=== PATIENT | female | born 1935 | race Caucasian/White ===

== ENCOUNTER 2018-01-14 10:57 | Emergency (ER) | payer MEDICARE, BC, SELFPAY ==
[2017-07-24 11:23] VITALS: BMI 31.7
[2018-01-14 11:08] VITALS: BP 167/72; PULSE 67; RESP 16; TEMP 37.2; O2SAT 97; BMI 31.8
[2018-01-14] MEDS: CYCLOBENZAPRINE 10 MG TABLET PO (11:46)
[2018-01-14] MEDS: IBUPROFEN 400 MG TABLET PO (11:46)
[2018-01-14 12:00] LABS: Add Manual Diff / Slide Review NO; Basophils Percent Auto 0.2 % (0-2); Eosinophils Percent Auto 2.3 % (2-4); Hematocrit 42.8 % (36-46); Hemoglobin 14.2 g/dL (12.0-16.0); Lymphocytes Percent Auto 16.2 % (25-40); Mean Corpuscular HGB Conc 33.2 % (30-36); Mean Corpuscular Hemoglobin 28.8 PG (26-34); Mean Corpuscular Volume 86.8 fL (80-100); Monocytes Percent Auto 11.9 % (3-14); Neutrophils Absolute Auto 4600 /uL (3000-5900); Neutrophils Percent Auto 69.4 % (50-75); Platelet Count 270 X10^3/uL (150-400); Red Blood Cell Count 4.94 X10^6/uL (4.0-5.2); White Blood Cell Count 6.6 X10^3/uL (4.5-11.0)
--- NOTE | 2018-01-14 12:06 | DI.RAD.S_ITS ---
PROCEDURE: XR HIP W PEL IF DONE RT 2V INDICATIONS: severe R hip pain, no significant injury TECHNIQUE: AP pelvis with lateral view(s) of the right hip(s). COMPARISON: [facility], , XR HIP W PEL IF DONE RT 2V, 07/24/2017, 10:26. FINDINGS: Bones: Patient is status post right hip arthroplasty. Alignment of right hip is unchanged from prior study. No gross hardware loosening or failure. 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 Pelvic ring appears intact. No suspicious bony lesions. Soft tissues: The visualized bowel gas pattern is normal. No suspicious soft tissue calcifications. IMPRESSION: No gross acute pelvic or right hip fracture. No gross hardware complication. Dictated by: Blaise Torres M.D. on 01/14/2018 at 13:09 Approved by: Blaise Torres M.D. on 01/14/2018 at 13:10
[2018-01-14 12:08] VITALS: BP 143/57; PULSE 70; RESP 16; O2SAT 100
[2018-01-14 12:12] LABS: BUN Creatinine Ratio 25.7 (6-22); Blood Urea Nitrogen 18 mg/dL (7-17); Calcium 9.2 mg/dL (8.4-10.2); Carbon Dioxide 32 mmol/L (22-32); Chloride 101 mmol/L (98-107); Estimated Glomerular Filt Rate > 60.0 mL/min (>60); Glucose 110 mg/dL (80-110); HEMOLYSIS < 15 (0-50); Sodium 141 mmol/L (137-145)
--- NOTE | 2018-01-14 12:58 | ED.FALL ---
HPI - Fall General Chief Complaint: Fall Stated Complaint: Right Hip and Leg pain Time Seen by Provider: 01/14/18 11:05 Source: patient and EMS Mode of arrival: EMS Limitations: no limitations History of Present Illness HPI Narrative: 82-year-old nonsmoking female presents by EMS for evaluation of right leg pain. She had called EMS to evaluate for spasming in her right anterior thigh and they were preparing to leave when the patient fell in front of them because of her pain. She denies any fall contributing to her injury. She denies any recent nausea, vomiting or diarrhea. She denies any new medications. She denies any fever or chills. Patient states that she had a right hip surgery earlier in the year and started increasing her activity in the past few days. She did a special type of yoga and then exerted herself even more over the past 2 days. Her pain is worse with motion and improves with rest. MD complaint: fall Onset (ago): minute(s) Fall from: standing Fall witnessed: yes, by family Place fall occurred: home Loss of consciousness: none Prolonged down time: no Symptoms prior to fall: none Context: other Related Data Home Medications Medication Instructions Recorded Confirmed hydrochlorothiazide 25 mg PO DAILY 07/09/17 01/14/18 paroxetine HCl [Paxil] 10 mg PO DAILY 07/09/17 01/14/18 pravastatin 20 mg PO BEDTIME 07/09/17 01/14/18 telmisartan 20 mg PO DAILY 07/09/17 01/14/18 Vitamin D3 1 cap PO DAILY 01/14/18 01/14/18 aspirin [Aspir-81] 81 mg PO DAILY 01/14/18 01/14/18 Previous Rx's Medication Instructions Recorded acetaminophen 650 mg PO Q6HR PRN #0 tab 07/26/17 oxycodone 5 mg PO Q4-6H PRN #60 tab 07/27/17 cyclobenzaprine 10 mg PO TID PRN #14 tab 01/14/18 Allergies Allergy/AdvReac Type Severity Reaction Status Date / Time erythromycin base Allergy Intermediate Hives Verified 01/14/18 11:08 Review of Systems Review of Systems All systems reviewed & are unremarkable except as noted in HPI and below Constitutional Denies chills, Denies fever(s), Denies lethargy and Denies weakness Eyes Denies change in vision, Denies eye discharge, Denies irritation and Denies loss of vision ENT Ears, Nose, Mouth, and Throat: Denies change in voice, Denies neck pain and Denies sore throat Cardiovascular Denies chest pain, Denies irregular heart rhythm, Denies lightheadedness, Denies palpitations, Denies dyspnea, Denies dyspnea on exertion and Denies orthopnea Respiratory Denies cough, Denies dyspnea, Denies dyspnea on exertion and Denies wheezing Gastrointestinal Gastrointestinal: Denies abdominal pain, Denies change in bowel habits, Denies diarrhea, Denies nausea and Denies vomiting Genitourinary Denies hematuria, Denies flank pain, Denies urinary incontinence and Denies urinary urgency Musculoskeletal Reports muscle cramps and Denies neck pain Integumentary/Breasts Denies pruritus, Denies erythema, Denies rash and Denies wounds Neurologic Denies confusion, Denies loss of vision and Denies weakness Psychiatric Denies anxiety, Denies confusion, Denies depression, Denies homicidal ideation and Denies suicidal ideation Endocrine Denies palpitations Hematologic/Lymphatic Denies easy bruising Allergic/Immunologic Denies wheezing Exam Narrative Exam Narrative: Pleasant 82-year-old female obviously in pain, clutching her right anterior thigh Initial Vital Signs Initial Vital Signs: Vital Signs Temperature 98.9 F 01/14/18 11:08 Pulse Rate 67 01/14/18 11:08 Respiratory Rate 16 01/14/18 11:08 Blood Pressure 167/72 H 01/14/18 11:08 Pulse Oximetry 97 01/14/18 11:08 Const General: cooperative, well developed and in distress Nutritional Appearance: well nourished Orientation: alert, awake, oriented x3 and not confused [facility] Head: normocephalic and atraumatic Ears: external ears normal and TM's normal bilaterally Nose: external nose normal and No nasal discharge Face and sinus: sinuses nontender, face symmetric, no sinus tenderness and No dry mucous membranes Mouth: oral mucosae normal and moist mucous membranes Teeth and gingiva: dentition normal Throat: tonsils normal and uvula midline Neck Neck: normal visual inspection, trachea midline, No lymphadenopathy, No midline deformity and No JVD Lymphatic: No lymphedema Chest Chest: normal inspection of the chest Cardio Rate: regular rate Rhythm: regular rhythm Heart Sounds: no click, no gallops, no murmurs and no rubs Pulses: normal peripheral pulses Back/Spine/Pelvis Back: No CVA tenderness Cervical Spine: cervical ROM normal and No pain with cervical ROM Thoracic/Lumbar Spine: thoracic and lumbar spine normal to inspection Skin General: no rashes or lesions noted, No jaundice and No petechiae Neuro General: alert, oriented x3, gait normal and no focal motor deficits Speech: speech normal Extrem General: full ROM, no clubbing, cyanosis or edema, no pedal edema and no calf tenderness Right lower extremity: hip/thigh ( increased pain with range of motion. No swelling, redness or warmth. Sensation and pulses intact. No rash noted) [facility] Medical History Diverticulosis (Acute) Encounter for colonoscopy due to history of colonic polyp (Acute) H/O: hysterectomy (Acute) HTN (hypertension) (Acute) Hyperlipidemia (Acute) Incontinence (Acute) Low back pain (Acute) Surgical History H/O bladder repair surgery (Acute) History of bilateral cataract extraction (Acute) History of bilateral tubal ligation (Acute) Hx of appendectomy (Acute) S/p bilateral blepharoplasty (Acute) Social History household members: significant other Smoking Status: Never smoker alcohol intake: current Course Orders Ordered: ED Orders 01/14/18 11:53 Basic Metabolic Panel Stat Complete Blood Count AUTO DIFF Stat 01/14/18 12:06 XR hip w pel if done RT 2V Stat Discontinued Medications Cyclobenzaprine HCl (Flexeril) 10 mg PO NOW ONE Stop: 01/14/18 11:24 Last Admin: 01/14/18 11:46 Dose: 10 mg Ibuprofen (Advil) 400 mg PO NOW ONE Stop: 01/14/18 11:24 Last Admin: 01/14/18 11:46 Dose: 400 mg Reevaluation(s) Reevaluation #1: patient felt great after Flexeril. She is able to take her leg through full passive and active range of kevin Vital Signs - 8 hr 01/14/18 12:08 01/14/18 13:41 01/14/18 14:10 Pulse Rate 70 69 72 Respiratory Rate 16 15 18 Blood Pressure [Left Arm] 143/57 H 146/49 H 128/52 L Pulse Oximetry 100 98 98 MDM - Fall Medical Records Attestation: I reviewed the patient's medical records. Lab Data Attestation: I reviewed the patient's lab results. Result diagrams: 01/14/18 11:53 01/14/18 11:53 Lab Results 01/14/18 01/14/18 Range/Units 11:53 11:53 WBC 6.6 (4.5-11.0) X10^3/uL RBC 4.94 (4.0-5.2) X10^6/uL Hgb 14.2 (12.0-16.0) g/dL Hct 42.8 (36-46) % MCV 86.8 (80-100) fL MCH 28.8 (26-34) PG MCHC 33.2 (30-36) % RDW 15.0 H (11.6-14.8) % Plt Count 270 (150-400) X10^3/uL Neut % (Auto) 69.4 (50-75) % Lymph % (Auto) 16.2 L (25-40) % Camp % (Auto) 11.9 (3-14) % Eos % (Auto) 2.3 (2-4) % Baso % (Auto) 0.2 (0-2) % Neut # (Auto) 4600 (6495-6948) /uL Sodium 141 (137-145) mmol/L Potassium 4.0 (3.4-5.1) mmol/L Chloride 101 (98-107) mmol/L Carbon Dioxide 32 (22-32) mmol/L BUN 18 H (7-17) mg/dL Creatinine 0.70 (0.52-1.04) mg/dL Estimated GFR > 60.0 (>60) mL/min BUN/Creatinine Ratio 25.7 H (6-22) Glucose 110 (80-110) mg/dL Calcium 9.2 (8.4-10.2) mg/dL Imaging Data Pelvis Hip: Radiologist's impression: [address] [address] XRay Report Signed Patient: Kayleen Mak#: [id number] : 8Acct:[id number] Age/Sex: 82 / FDate of Service: 01/14/18 Loc: ED Accession Number: [id number] Procedure: XR hip w pel if done RT 2V Ordering Provider: Justin Shaffer D.O. PROCEDURE: XR HIP W PEL IF DONE RT 2V INDICATIONS: severe R hip pain, no significant injury TECHNIQUE: AP pelvis with lateral view(s) of the right hip(s). COMPARISON: [facility], CR, XR HIP W PEL IF DONE RT 2V, 07/24/2017, 10:26. FINDINGS: Bones: Patient is status post right hip arthroplasty. Alignment of right hip is unchanged from prior study. No gross hardware loosening or failure. 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 Pelvic ring appears intact. No suspicious bony lesions. Soft tissues: The visualized bowel gas pattern is normal. No suspicious soft tissue calcifications. IMPRESSION: No gross acute pelvic or right hip fracture. No gross hardware complication. Dictated by: Blaise Torres M.D. on 01/14/2018 at 13:09 Approved by: Blaise Torres M.D. on 01/14/2018 at 13:10 [facility] Narrative Medical decision making narrative: Patient complains of right anterior leg pain in the absence of injury. She denies any redness, swelling or warmth. She admits to having tremendously increased her activity for the 1st time since her right hip surgery over the past few days. Diagnoses such as electrolyte disturbance, cellulitis and DVT considered but thought less likely given presentation and labs Discharge Plan Departure Patient Disposition: Home Clinical Impression: Leg muscle spasm Discharge Date/Time: 01/14/18 14:25 Interventions: ED Discharge Assessment Last Done: 01/14/18 14:24 Instructions: DI for Leg Pain Activity Restrictions/Additional Instructions: *You have been diagnosed with [ right leg pain with spasm ] *What to do: *Take medications as directed *Follow up with your primary care provider in 2-3 days, call for an appointment. Let them know you were seen in the Emergency Department and that we ask that you be seen in follow up *Return to ER if you should have any new, worsening or concerning symptoms Prescriptions: New cyclobenzaprine 10 mg tablet 10 mg PO TID PRN (Reason: muscle spasm) Qty: 14 RF: 0 No Action paroxetine HCl [Paxil] 10 mg Tablet 10 mg PO DAILY RF: 0 pravastatin 20 mg Tablet 20 mg PO BEDTIME RF: 0 hydrochlorothiazide 25 mg Tablet 25 mg PO DAILY RF: 0 telmisartan 20 mg Tablet 20 mg PO DAILY RF: 0 acetaminophen 325 mg Tablet 650 mg PO Q6HR PRN (Reason: Pain, Mild) Qty: 0 RF: 0 oxycodone 5 mg tablet 5 mg PO Q4-6H PRN (Reason: pain) Qty: 60 RF: 0 Vitamin D3 1 cap PO DAILY RF: 0 aspirin [Aspir-81] 81 mg tablet,delayed release (DR/EC) 81 mg PO DAILY RF: 0 Referrals: Bandar Simmons MD [Primary Care Provider] -
[2018-01-14 13:41] VITALS: BP 146/49; PULSE 69; RESP 15; O2SAT 98
[2018-01-14 14:10] VITALS: BP 128/52; PULSE 72; RESP 18; O2SAT 98
--- NOTE | 2018-01-14 20:14 | ED_ITS ---
HPI - Fall General Chief Complaint: Fall Stated Complaint: Right Hip and Leg pain Time Seen by Provider: 01/14/18 11:05 Source: patient and EMS Mode of arrival: EMS Limitations: no limitations History of Present Illness HPI Narrative: 82-year-old nonsmoking female presents by EMS for evaluation of right leg pain. She had called EMS to evaluate for spasming in her right anterior thigh and they were preparing to leave when the patient fell in front of them because of her pain. She denies any fall contributing to her injury. She denies any recent nausea, vomiting or diarrhea. She denies any new medications. She denies any fever or chills. Patient states that she had a right hip surgery earlier in the year and started increasing her activity in the past few days. She did a special type of yoga and then exerted herself even more over the past 2 days. Her pain is worse with motion and improves with rest. MD complaint: fall Onset (ago): minute(s) Fall from: standing Fall witnessed: yes, by family Place fall occurred: home Loss of consciousness: none Prolonged down time: no Symptoms prior to fall: none Context: other Related Data Home Medications Medication Instructions Recorded Confirmed hydrochlorothiazide 25 mg PO DAILY 07/09/17 01/14/18 paroxetine HCl [Paxil] 10 mg PO DAILY 07/09/17 01/14/18 pravastatin 20 mg PO BEDTIME 07/09/17 01/14/18 telmisartan 20 mg PO DAILY 07/09/17 01/14/18 Vitamin D3 1 cap PO DAILY 01/14/18 01/14/18 aspirin [Aspir-81] 81 mg PO DAILY 01/14/18 01/14/18 Previous Rx's Medication Instructions Recorded acetaminophen 650 mg PO Q6HR PRN #0 tab 07/26/17 oxycodone 5 mg PO Q4-6H PRN #60 tab 07/27/17 cyclobenzaprine 10 mg PO TID PRN #14 tab 01/14/18 Allergies Allergy/AdvReac Type Severity Reaction Status Date / Time erythromycin base Allergy Intermediate Hives Verified 01/14/18 11:08 Review of Systems Review of Systems All systems reviewed & are unremarkable except as noted in HPI and below Constitutional Denies chills, Denies fever(s), Denies lethargy and Denies weakness Eyes Denies change in vision, Denies eye discharge, Denies irritation and Denies loss of vision ENT Ears, Nose, Mouth, and Throat: Denies change in voice, Denies neck pain and Denies sore throat Cardiovascular Denies chest pain, Denies irregular heart rhythm, Denies lightheadedness, Denies palpitations, Denies dyspnea, Denies dyspnea on exertion and Denies orthopnea Respiratory Denies cough, Denies dyspnea, Denies dyspnea on exertion and Denies wheezing Gastrointestinal Gastrointestinal: Denies abdominal pain, Denies change in bowel habits, Denies diarrhea, Denies nausea and Denies vomiting Genitourinary Denies hematuria, Denies flank pain, Denies urinary incontinence and Denies urinary urgency Musculoskeletal Reports muscle cramps and Denies neck pain Integumentary/Breasts Denies pruritus, Denies erythema, Denies rash and Denies wounds Neurologic Denies confusion, Denies loss of vision and Denies weakness Psychiatric Denies anxiety, Denies confusion, Denies depression, Denies homicidal ideation and Denies suicidal ideation Endocrine Denies palpitations Hematologic/Lymphatic Denies easy bruising Allergic/Immunologic Denies wheezing Exam Narrative Exam Narrative: Pleasant 82-year-old female obviously in pain, clutching her right anterior thigh Initial Vital Signs Initial Vital Signs: Vital Signs Temperature 98.9 F 01/14/18 11:08 Pulse Rate 67 01/14/18 11:08 Respiratory Rate 16 01/14/18 11:08 Blood Pressure 167/72 H 01/14/18 11:08 Pulse Oximetry 97 01/14/18 11:08 Const General: cooperative, well developed and in distress Nutritional Appearance: well nourished Orientation: alert, awake, oriented x3 and not confused [facility] Head: normocephalic and atraumatic Ears: external ears normal and TM's normal bilaterally Nose: external nose normal and No nasal discharge Face and sinus: sinuses nontender, face symmetric, no sinus tenderness and No dry mucous membranes Mouth: oral mucosae normal and moist mucous membranes Teeth and gingiva: dentition normal Throat: tonsils normal and uvula midline Neck Neck: normal visual inspection, trachea midline, No lymphadenopathy, No midline deformity and No JVD Lymphatic: No lymphedema Chest Chest: normal inspection of the chest Cardio Rate: regular rate Rhythm: regular rhythm Heart Sounds: no click, no gallops, no murmurs and no rubs Pulses: normal peripheral pulses Back/Spine/Pelvis Back: No CVA tenderness Cervical Spine: cervical ROM normal and No pain with cervical ROM Thoracic/Lumbar Spine: thoracic and lumbar spine normal to inspection Skin General: no rashes or lesions noted, No jaundice and No petechiae Neuro General: alert, oriented x3, gait normal and no focal motor deficits Speech: speech normal Extrem General: full ROM, no clubbing, cyanosis or edema, no pedal edema and no calf tenderness Right lower extremity: hip/thigh ( increased pain with range of motion. No swelling, redness or warmth. Sensation and pulses intact. No rash noted) [facility] Medical History Diverticulosis (Acute) Encounter for colonoscopy due to history of colonic polyp (Acute) H/O: hysterectomy (Acute) HTN (hypertension) (Acute) Hyperlipidemia (Acute) Incontinence (Acute) Low back pain (Acute) Surgical History H/O bladder repair surgery (Acute) History of bilateral cataract extraction (Acute) History of bilateral tubal ligation (Acute) Hx of appendectomy (Acute) S/p bilateral blepharoplasty (Acute) Social History household members: significant other Smoking Status: Never smoker alcohol intake: current Course Orders Ordered: ED Orders 01/14/18 11:53 Basic Metabolic Panel Stat Complete Blood Count AUTO DIFF Stat 01/14/18 12:06 XR hip w pel if done RT 2V Stat Discontinued Medications Cyclobenzaprine HCl (Flexeril) 10 mg PO NOW ONE Stop: 01/14/18 11:24 Last Admin: 01/14/18 11:46 Dose: 10 mg Ibuprofen (Advil) 400 mg PO NOW ONE Stop: 01/14/18 11:24 Last Admin: 01/14/18 11:46 Dose: 400 mg Reevaluation(s) Reevaluation #1: patient felt great after Flexeril. She is able to take her leg through full passive and active range of kevin Vital Signs - 8 hr 01/14/18 12:08 01/14/18 13:41 01/14/18 14:10 Pulse Rate 70 69 72 Respiratory Rate 16 15 18 Blood Pressure [Left Arm] 143/57 H 146/49 H 128/52 L Pulse Oximetry 100 98 98 MDM - Fall Medical Records Attestation: I reviewed the patient's medical records. Lab Data Attestation: I reviewed the patient's lab results. Result diagrams: 01/14/18 11:53 01/14/18 11:53 Lab Results 01/14/18 01/14/18 Range/Units 11:53 11:53 WBC 6.6 (4.5-11.0) X10^3/uL RBC 4.94 (4.0-5.2) X10^6/uL Hgb 14.2 (12.0-16.0) g/dL Hct 42.8 (36-46) % MCV 86.8 (80-100) fL MCH 28.8 (26-34) PG MCHC 33.2 (30-36) % RDW 15.0 H (11.6-14.8) % Plt Count 270 (150-400) X10^3/uL Neut % (Auto) 69.4 (50-75) % Lymph % (Auto) 16.2 L (25-40) % Cotton % (Auto) 11.9 (3-14) % Eos % (Auto) 2.3 (2-4) % Baso % (Auto) 0.2 (0-2) % Neut # (Auto) 4600 (1424-0160) /uL Sodium 141 (137-145) mmol/L Potassium 4.0 (3.4-5.1) mmol/L Chloride 101 (98-107) mmol/L Carbon Dioxide 32 (22-32) mmol/L BUN 18 H (7-17) mg/dL Creatinine 0.70 (0.52-1.04) mg/dL Estimated GFR > 60.0 (>60) mL/min BUN/Creatinine Ratio 25.7 H (6-22) Glucose 110 (80-110) mg/dL Calcium 9.2 (8.4-10.2) mg/dL Imaging Data Pelvis Hip: Radiologist's impression: [address] [address] XRay Report Signed Patient: Kayleen Mak#: [id number] : 8Acct:[id number] Age/Sex: 82 / FDate of Service: 01/14/18 Loc: ED Accession Number: [id number] Procedure: XR hip w pel if done RT 2V Ordering Provider: Justin Shaffer D.O. PROCEDURE: XR HIP W PEL IF DONE RT 2V INDICATIONS: severe R hip pain, no significant injury TECHNIQUE: AP pelvis with lateral view(s) of the right hip(s). COMPARISON: [facility], CR, XR HIP W PEL IF DONE RT 2V, 07/24/2017, 10:26. FINDINGS: Bones: Patient is status post right hip arthroplasty. Alignment of right hip is unchanged from prior study. No gross hardware loosening or failure. 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 Pelvic ring appears intact. No suspicious bony lesions. Soft tissues: The visualized bowel gas pattern is normal. No suspicious soft tissue calcifications. IMPRESSION: No gross acute pelvic or right hip fracture. No gross hardware complication. Dictated by: Blaise Torres M.D. on 01/14/2018 at 13:09 Approved by: Blaise Torres M.D. on 01/14/2018 at 13:10 [facility] Narrative Medical decision making narrative: Patient complains of right anterior leg pain in the absence of injury. She denies any redness, swelling or warmth. She admits to having tremendously increased her activity for the 1st time since her right hip surgery over the past few days. Diagnoses such as electrolyte disturbance, cellulitis and DVT considered but thought less likely given presentation and labs Discharge Plan Departure Patient Disposition: Home Clinical Impression: Leg muscle spasm Discharge Date/Time: 01/14/18 14:25 Interventions: ED Discharge Assessment Last Done: 01/14/18 14:24 Instructions: DI for Leg Pain Activity Restrictions/Additional Instructions: *You have been diagnosed with [ right leg pain with spasm ] *What to do: *Take medications as directed *Follow up with your primary care provider in 2-3 days, call for an appointment. Let them know you were seen in the Emergency Department and that we ask that you be seen in follow up *Return to ER if you should have any new, worsening or concerning symptoms Prescriptions: New cyclobenzaprine 10 mg tablet 10 mg PO TID PRN (Reason: muscle spasm) Qty: 14 RF: 0 No Action paroxetine HCl [Paxil] 10 mg Tablet 10 mg PO DAILY RF: 0 pravastatin 20 mg Tablet 20 mg PO BEDTIME RF: 0 hydrochlorothiazide 25 mg Tablet 25 mg PO DAILY RF: 0 telmisartan 20 mg Tablet 20 mg PO DAILY RF: 0 acetaminophen 325 mg Tablet 650 mg PO Q6HR PRN (Reason: Pain, Mild) Qty: 0 RF: 0 oxycodone 5 mg tablet 5 mg PO Q4-6H PRN (Reason: pain) Qty: 60 RF: 0 Vitamin D3 1 cap PO DAILY RF: 0 aspirin [Aspir-81] 81 mg tablet,delayed release (DR/EC) 81 mg PO DAILY RF: 0 Referrals: Bandar Simmons MD [Primary Care Provider] -
== END 2018-01-14 14:25 | disposition home or self-care (01) ==
PROVIDERS: Emergency Provider Emergency Medicine; PCP Internal Medicine
DX: M62.838 Other muscle spasm (principal)
CPT/HCPCS: 36415; 73502; 80048; 85025; 99283; 99284

== ENCOUNTER → 2020-05-19 09:23 | Outpatient (CLI) | payer MEDICARE, BC, SELFPAY ==
[2020-03-23 09:15] VITALS: BMI 31.7
--- NOTE | 2020-05-19 09:26 | DI.MRI.S_ITS ---
PROCEDURE: MR LUMBAR SPINE WO CON INDICATIONS: Spinal stenosis with right lower extremity weakness TECHNIQUE: Noncontrast sagittal T1 spin echo and T2 fast echo, coronal T2, sagittal STIR, axial T1 and T2 fast spin echo through the lumbar spine. COMPARISON: [facility], RG, XR L-SPINE 2-3V, 04/29/2020, 9:57. [facility], MR, L-SPINE WITHOUT CONTRAST, 08/08/2012, 15:04. FINDINGS: Image quality: Excellent. Alignment and Curvature: 5 lumbar type vertebral bodies are present by plain film. Moderate leftward curvature of the upper lumbar lower thoracic spine. Moderate rightward curvature of the mid/lower lumbar spine. Mild, grade 1 retrolisthesis of T12 on L1, L1 on L2, L2 on L3, and L3 on L4. Mild grade 1 anterolisthesis of L4 on L5. Bone Marrow: Marrow is of normal overall signal. No acute vertebral body compression fractures. Mild reactive signal within the endplates adjacent to the T10-T11, L1-L2, L2-L3, L4-L5, and L5-S1 intervertebral discs. Moderate reactive signal within the endplates adjacent to the T11-T12, T12-L1, and L3-L4 intervertebral discs. Spinal Cord: Conus medullaris terminates at the L1-L2 disc space level. Visualized cord demonstrates normal signal and size. Paraspinous Soft Tissues: Incompletely visualized well-circumscribed high T2 intensity focus within the right hepatic lobe is present, as before. Moderate hiatal hernia. T12-L1: Severe disc height loss and desiccation. Mild diffuse disc bulge with superimposed broad-based right paracentral and posterolateral protrusion. Mild facet and ligamentum flavum hypertrophy. Mild canal stenosis. Moderate right and mild left foraminal stenosis. Mild canal stenosis. No change. L1-L2: Moderate disc height loss and desiccation. Mild diffuse disc bulge. Mild bilateral facet hypertrophy. Mild canal stenosis. Mild bilateral foraminal stenosis. No change. L2-L3: Moderate disc height loss and desiccation. Mild diffuse disc bulge. Mild facet and ligamentum flavum hypertrophy. Mild canal stenosis. Mild right and moderate left foraminal stenosis. No change. L3-L4: Moderate disc height loss and desiccation. Mild diffuse disc bulge. Moderate facet and ligamentum flavum hypertrophy. There is increased, moderate canal stenosis. Increased, moderate bilateral foraminal stenosis. L4-L5: Moderate disc height loss and desiccation. Mild diffuse disc bulge. Moderate facet and ligamentum flavum hypertrophy. Increased, severe canal stenosis. Increased, moderate bilateral foraminal stenosis. L5-S1: Moderate disc height loss and desiccation. Mild diffuse disc bulge. Mild bilateral facet hypertrophy. Mild canal stenosis. Mild bilateral foraminal stenosis. No change. IMPRESSION: 1. Multilevel degenerative disc and facet disease, as well as ligamentum flavum hypertrophy and epidural lipomatosis. 2. Multilevel canal stenoses, worst at L4-L5, where there is severe canal stenosis. Moderate canal stenosis at L3-L4 is present. 3. Multilevel foraminal stenoses, worst at T12-L1, L2-L3, L3-L4, and L4-L5, where there are moderate foraminal stenosis as described above. 4. Moderate hiatal hernia. Dictated by: Mame Gaston M.D. on 05/19/2020 at 11:03 Approved by: Mame Gaston M.D. on 05/19/2020 at 11:12
== END ==
PROVIDERS: PCP Family Medicine; Referring Provider Physical Medicine & Rehabilitation; Visit Provider Physical Medicine & Rehabilitation
DX: M43.16 Spondylolisthesis, lumbar region (principal); M41.9 Scoliosis, unspecified; M54.16 Radiculopathy, lumbar region; M48.061 Spinal stenosis, lumbar region without neurogenic claudication; M48.04 Spinal stenosis, thoracic region; K44.9 Diaphragmatic hernia without obstruction or gangrene
CPT/HCPCS: 72148

== ENCOUNTER → 2020-05-31 10:30 | Outpatient (CLI) | payer MEDICARE, BC, SELFPAY ==
[2020-03-23 09:15] VITALS: BMI 31.7
[2020-05-31 12:33] LABS: COVID19 -Nasal RAPID Negative (Negative)
== END ==
PROVIDERS: PCP Family Medicine; Visit Provider Physical Medicine & Rehabilitation
DX: Z20.822 Contact with and (suspected) exposure to COVID-19 (principal)
CPT/HCPCS: 87635; C9803

== ENCOUNTER 2020-06-01 14:21 | Outpatient (CLI) | payer MEDICARE, BC, SELFPAY ==
[2020-03-23 09:15] VITALS: BMI 31.7
[2020-06-01] VITALS (8 sets, daily range): BP systolic 121–173; BP diastolic 57–79; PULSE 80–96; RESP 15–19; TEMP 36.6; O2SAT 95–99
--- NOTE | 2020-06-01 14:22 | DI.RAD.S_ITS ---
PROCEDURE: PAIN L/S TRANSFORAMINAL INJECT INDICATIONS: SPONDYLOSIS COMPARISON: [facility], RG, XR L-SPINE 2-3V, 04/29/2020, 9:57. FINDINGS: Fluoroscopic spot filming was performed to verify placement of a spinal needle at the L4-L5 level, as labeled on the films. Appropriate location of the needle tip was confirmed by injection of iodinated contrast. IMPRESSION: Intraprocedural examination within normal limits. Dictated by: Behzad Bloom M.D. on 06/01/2020 at 14:31 Approved by: Behzad Bloom M.D. on 06/01/2020 at 14:31
[2020-06-01] MEDS: fentaNYL 100 MCG/2 ML INJ 50 MCG IV (14:58)
[2020-06-01] MEDS: MIDAZOLAM 5 MG/5 ML VIAL IV (14:58)
[2020-06-01] MEDS: DEXAMETHASONE 10 MG/ML VIAL 20 MG INJ (15:02)
[2020-06-01] MEDS: BETAMETHASONE 30 MG/5 ML MDV 6 MG INJ (15:03)
[2020-06-01] MEDS: BUPIVACAINE 0.25% (PF) VIAL 2 ML INJ (15:03)
[2020-06-01] MEDS: IOPAMIDOL 15 ML VIAL 3 ML INJ (15:03)
--- NOTE | 2020-06-01 15:09 | P.PCN_ITS ---
Date/Time/Diagnoses Date of procedure: 06/01/20 Time of procedure: 15:10 Pre-procedure diagnosis: 1. FORAMINAL STENOSIS WITH LE SYMPTOMS Post-procedure diagnosis: same Procedure Notes Procedure: 1. FLUOROSCOPICALLY GUIDED CONTRAST CONTROLLED TRANSFORAMINAL EPIDURAL STEROID INJECTION - RIGHT L4/5 TFESI Indications: Ca is referred by Dr. Frank for treatment of Foraminal Stenosis with Right LE Symptoms Physician: Colin Mike Total Fluoroscopy time (seconds): 7 Total sedation minutes: 10 Complications: none Procedure in detail & Post-procedure care: FINDINGS Foraminal Nerve Root Compression secondary to disc disease and facet hypertrophy DESCRIPTION OF PROCEDURE Following review of allergy and review of potential side effects and complications, including, but not necessarily limited to, infection, allergic reaction, local tissue breakdown, stroke, temporary or permanent nerve injury, paralysis, and possible , the patient indicated that the patient understood and agreed to proceed. An informed consent document was signed by the patient, witnessed by a nurse, and placed in the patient's chart. Additionally, other treatment options including medications, modalities, and physical therapy were reviewed with the patient. After review of previous anaesthesic history and IV conscious sedation the patient was deemed safe to proceed with today?s procedure with IV conscious sedation as ASA class II designation. Safety time-out was performed to confirm patient ID, procedure to be performed and site of procedure. IV sedation was accomplished with a combination of 2mg of Versed and 50mcg of Fentanyl was administered by the RN after DO order, titrated to patient comfort during the course of the procedure while the patient remained responsive to all verbal commands In the prone position following sterile prep and drape of the lumbar region, the right L4/5 posterior neuroforamen was identified fluoroscopically. The skin was anesthetized via a 25-gauge 1.5-inch needle with 1% lidocaine solution. At this point, a 25-gauge 3.5-inch spinal needle was atraumatically introduced and advanced under fluoroscopic guidance through the posterior right L4/5 neuroforamen to approximately the anterior aspect of the canal. Depth was confirmed on lateral view. Following negative aspiration, injection of approximately 1.5cc of Isovue 200 under live fluoroscopy in the AP view confirmed excellent flow along the nerve root, into the epidural space without vascular or intrathecal uptake observed Radiological data, including multiple fluoroscopic views of the lumbosacral spine, reveal a spinal needle at the right L4/5 posterior neuroforamen. Subsequent views show flow of contrast material flowing superiorly and inferiorly along the nerve root confirming epidural flow. Subsequently, a test dose of 1.5 cc of 1% lidocaine solution was administered and patient was observed for two minutes for signs or symptoms of complications, including abdominal pain, shortness of breath, bilateral upper or lower extremity weakness, nausea and vomiting, prior to steroid injection. At this point, a total of 3cc or 20mg of dexamethasone and 6mg of betamethasone was injected without incident. The procedure tolerated the procedure well without signs or symptoms of complications prior to transfer to the recovery area continued monitoring without incident. The patient was then transferred to the recovery area where they were observed for an appropriate time after the injection. The patient reported a VAS score of 7 prior to the procedure and a post- procedure VAS of 0. POST OP INSTRUCTIONS The patient was provided a Pain Log to continue to record their response to the target-specific procedure prior to follow-up visit with their referring physician. Additionally, specific post-injection care instructions and a contact number to our office were provided if concerns arise regarding possible complications associated with the procedure are suspected.
== END 2020-06-01 16:00 | disposition home or self-care (01) ==
LOC: RAD 14:22
PROVIDERS: PCP Family Medicine; Referring Provider Physical Medicine & Rehabilitation; Visit Provider Physical Medicine & Rehabilitation
DX: M48.061 Spinal stenosis, lumbar region without neurogenic claudication (principal); M51.16 Intervertebral disc disorders with radiculopathy, lumbar region
CPT/HCPCS: 64483; 99152; J0702; J1100; J2250; J3010

== ENCOUNTER → 2021-05-02 10:36 | Outpatient (CLI) | payer MEDICARE, BC, SELFPAY ==
[2020-03-23 09:15] VITALS: BMI 31.7
[2021-05-02 14:03] LABS: COVID19 -Nasal RAPID Negative (Negative)
== END ==
PROVIDERS: PCP Family Medicine; Referring Provider Physical Medicine & Rehabilitation; Visit Provider Physical Medicine & Rehabilitation
DX: Z20.822 Contact with and (suspected) exposure to COVID-19 (principal)
CPT/HCPCS: 87635

== ENCOUNTER 2021-05-03 10:17 | Outpatient (CLI) | payer MEDICARE, BC, SELFPAY ==
[2020-03-23 09:15] VITALS: BMI 31.7
[2021-05-03] VITALS (7 sets, daily range): BP systolic 116–171; BP diastolic 54–77; PULSE 69–78; RESP 10–20; TEMP 36.7; O2SAT 92–97
--- NOTE | 2021-05-03 10:18 | DI.RAD.S_ITS ---
PROCEDURE: PAIN L INTERLAMINAR/CAUDAL INJ INDICATIONS: SPONDYLOSIS COMPARISON: None. FINDINGS: Fluoroscopic spot filming was performed to verify placement of spinal needles at the right paramedian interlaminar space at the L4-L5 level(s), as labeled on the films. Appropriate location(s) of the needle tip(s) was confirmed by injection of iodinated contrast. IMPRESSION: Access needle in the right paramedian L4-L5 interlaminar space for translaminar epidural steroid injection. Dictated by: Opal Haas MD, PhD on 05/03/2021 at 11:53 Approved by: Opal Haas MD, PhD on 05/03/2021 at 11:54
[2021-05-03] MEDS: BUPIVACAINE 0.25% (PF) VIAL 2 ML INJ (11:16)
[2021-05-03] MEDS: BETAMETHASONE 30 MG/5 ML MDV 6 MG INJ (11:16)
[2021-05-03] MEDS: IOPAMIDOL 15 ML VIAL 3 ML INJ (11:16)
[2021-05-03] MEDS: MIDAZOLAM 5 MG/5 ML VIAL IV (11:17)
[2021-05-03] MEDS: DEXAMETHASONE 10 MG/ML VIAL 20 MG INJ (11:17)
[2021-05-03] MEDS: fentaNYL 250 MCG/5 ML INJ 50 MCG IV (11:17)
--- NOTE | 2021-05-03 11:24 | P.PCN_ITS ---
Date/Time/Diagnoses Date of procedure: 05/03/21 Time of procedure: 11:24 Pre-procedure diagnosis: 1. HNP WITH RADICULAR FEATURES, 2. MULTILEVEL CENTRAL STENOSIS, Post-procedure diagnosis: same Procedure Notes Procedure: 1. FLUOROSCOPICALLY GUIDED CONTRAST CONTROLLED INTERLAMINAR EPIDURAL STEROID INJECTION -L4/5 Indications: Ca is referred by Dr. Frank for treatment of Bilateral Foraminal Stenosis R>L LE symptoms. Physician: Colin Mike Total Fluoroscopy time (seconds): 5 Total sedation minutes: 10 Complications: none Procedure in detail & Post-procedure care: FINDINGS Multilevel Central Spinal Stenosis with Nerve Root Compression DESCRIPTION OF PROCEDURE Fluoroscopically guided, contrast-controlled L4/5 translaminar epidural steroid injection. Following review of allergy and review of potential side effects and complications, including, but not necessarily limited to, infection, allergic reaction, local tissue breakdown, temporary as well as permanent nerve injury, paralysis, stroke and possible , the patient indicated that the patient understood and agreed to proceed. An informed consent document was signed by the patient, witnessed by a nurse, and placed in the patient's chart. Additionally, other treatment options including modalities, medications, and physical therapy were reviewed with the patient. After review of previous anaesthesic history and IV conscious sedation the patient was deemed safe to proceed with today?s procedure with IV conscious sedation as ASA class II designation. Safety time-out was performed to confirm patient ID, procedure to be performed and site of procedure. IV sedation was accomplished with a combination of 2mg of Versed and 50mcg of Fentanyl was administered by the RN after DO order, titrated to patient comfort during the course of the procedure while the patient remained responsive to all verbal commands In the prone position, following sterile prep and drape of the lumbar region, the L4/5 translaminar space was identified fluoroscopically. The skin was anesthetized via a 25-gauge, 1.5inch needle with 1% lidocaine solution. At this point, a 22-gauge short bevel spinal needle was atraumatically introduced and advanced under fluoroscopic guidance into the region of the L4/5 translaminar space. Depth was confirmed on lateral view. Radiological data, including multiple fluoroscopic views of the lumbar spine, reveal a spinal needle at the L4/5 translaminar space. Lateral views then show placement of the needle in the epidural space. Subsequent views show contrast material flowing superiorly and inferiorly in the epidural space. No vascular or intrathecal uptake is observed. At this point, using loss of resistance technique with saline and air, the epidural space was entered. This was confirmed following negative aspiration with injection of approximately 1.5cc of Isovue 200, showing excellent epidural flow without vascular or intrathecal uptake. At this point, 1cc of 1% lidocaine solution combined with 3cc or 20mg of dexamethasone and 6mg betamethasone was injected without incident. The patient tolerated the procedure well without signs or symptoms of compl ications prior to transfer to the recovery area continued monitoring without incident. The patient was then transferred to the recovery area where they were observed for an appropriate period of time after the injection. The patient reported a VAS score of 6 prior to the procedure and a post- procedure VAS of 0. POST OP INSTRUCTIONS The patient was provided a Pain Log to continue to record their response to the target-specific procedure prior to follow-up visit with their referring physician. Additionally, specific post-injection care instructions and a contact number to our office were provided if concerns arise regarding possible complications associated with the procedure are suspected.
== END 2021-05-03 11:43 | disposition home or self-care (01) ==
PROVIDERS: PCP Family Medicine; Referring Provider Physical Medicine & Rehabilitation; Visit Provider Physical Medicine & Rehabilitation
DX: M51.16 Intervertebral disc disorders with radiculopathy, lumbar region (principal); M48.061 Spinal stenosis, lumbar region without neurogenic claudication
CPT/HCPCS: 62323; 99152; J0702; J1100; J2250; J3010

== ENCOUNTER → 2021-07-20 13:45 | Outpatient (CLI) | payer MEDICARE, BC, SELFPAY ==
[2020-03-23 09:15] VITALS: BMI 31.7
--- NOTE | 2021-07-20 13:48 | DI.RAD.S_ITS ---
PROCEDURE: XR LUMBAR SPINE MIN 4V INDICATIONS: BACK PAIN TECHNIQUE: 5 views of the lumbar spine acquired, including flexion and extension views. COMPARISON: [facility], RG, XR L-SPINE 2-3V, 04/29/2020, 9:57. FINDINGS: Bones: 5 nonrib-bearing vertebrae are present. Moderate dextroscoliosis centered at the L4 level. 5 mm spondylolisthesis L4-L5. Multilevel disc degeneration, most notably and moderate at the L4-L5 and L5-S1 levels. Moderate L4-L5 and L5-S1 facet joint arthropathy. No vertebral body compression fractures. No suspicious bony lesions. Soft tissues: Overlying bowel gas pattern is normal. No suspicious soft tissue calcifications. Vascular calcifications indicate atherosclerosis. IMPRESSION: 1. Multilevel spondylosis and diffuse osteopenia. Dictated by: Jaden Cool [facility] Interpreted: Bruno Keith MD on 07/20/2021 at 14:27 Transcribed by: CARLOS on 07/20/2021 at 14:29 Approved by: Bruno Keith M.D. on 07/20/2021 at 15:15
== END ==
PROVIDERS: PCP Family Medicine; Referring Provider Physical Medicine & Rehabilitation; Visit Provider Physical Medicine & Rehabilitation
DX: M47.27 Other spondylosis with radiculopathy, lumbosacral region (principal); M85.88 Other specified disorders of bone density and structure, other site; M47.26 Other spondylosis with radiculopathy, lumbar region; M43.16 Spondylolisthesis, lumbar region; M41.26 Other idiopathic scoliosis, lumbar region; M16.11 Unilateral primary osteoarthritis, right hip; Z96.641 Presence of right artificial hip joint
CPT/HCPCS: 72110; 99213